=== PATIENT | male | born 1955 | race Caucasian/White ===

== ENCOUNTER 2016-07-17 09:28 | Emergency (ER) | payer MEDICARE ==
[~2016-07-17] VITALS: Ht 167.6 cm; Wt 63.5 kg
[2016-07-17 09:35] VITALS: BP 164/87
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
[2016-07-17] MEDS ORDERED: HYDR-971 PO (11:01)
[2016-07-17] MEDS ORDERED: ORPH100T PO (11:01)
[2016-07-17] MEDS ORDERED: NAPR500T3 PO (11:01)
== END 2016-07-17 11:09 | disposition home or self-care (01) ==
LOC: ER 09:28
DX: S16.1XXA Strain of muscle, fascia and tendon at neck level, initial encounter (principal); S39.012A Strain of muscle, fascia and tendon of lower back, initial encounter; S80.02XA Contusion of left knee, initial encounter; I10 Essential (primary) hypertension; V58.6XXA Passenger in pick-up truck or van injured in noncollision transport accident in traffic accident, initial encounter; Y93.89 Activity, other specified; Y92.410 Unspecified street and highway as the place of occurrence of the external cause; Y99.8 Other external cause status
CPT/HCPCS: 72100; 73562; 99284

== ENCOUNTER 2017-08-21 08:40 | Emergency (ER) | payer OTHER, MEDICARE ==
[2017-08-21] MEDS: LIDOCAINE 1% PF 2 ML VIAL. INJ (09:08)
[2017-08-21] MEDS: cefTRIAXone IM 1 GM VIAL IM (09:09)
== END 2017-08-21 09:23 | disposition home or self-care (01) ==
LOC: ER 09:23
DX: L03.115 Cellulitis of right lower limb (principal); S80.861A Insect bite (nonvenomous), right lower leg, initial encounter; I10 Essential (primary) hypertension; W57.XXXA Bitten or stung by nonvenomous insect and other nonvenomous arthropods, initial encounter; Y93.89 Activity, other specified; Y99.8 Other external cause status; Y92.89 Other specified places as the place of occurrence of the external cause
CPT/HCPCS: 96372; 99284; J0696